=== PATIENT | male | born 1965 | race Caucasian/White ===

== ENCOUNTER 2018-07-22 07:11 | Inpatient (IN) | payer OTHER ==
[~2018-07-22] VITALS: Ht 180.3 cm; Wt 128.4 kg
[~2018-07-22 07:11] MED LIST: ACET325C PO; MELO-107 PO; METO25 PO
[2018-07-22] MEDS ORDERED: RINGERS SOLUTION,LACTATED 1,000 ML IV ONE ×2 (07:22→07:30)
[2018-07-22] MEDS ORDERED: CeFAZolin 2 GM/DEXTROSE 50 ML IV ONE ×2 (07:23→07:30)
[2018-07-22] MEDS ORDERED: GELATIN SPONGE,ABSORBABLE 100 MM TP ONE (08:49)
[2018-07-22] MEDS ORDERED: BACITRACIN 50,000 UNITS/VIAL ONE (08:49)
[2018-07-22] MEDS ORDERED: THROMBIN, BOVINE 20000 UNITS/VIAL POWDER TP ONE (08:49)
[2018-07-22] MEDS ORDERED: SODIUM CHLORIDE 0.9% 250 ML IV ONE ×2 (08:50→17:28)
[2018-07-22] MEDS ORDERED: SODIUM CHLORIDE 0.9% 10 ML ONE (08:50)
[2018-07-22] MEDS ORDERED: ACETAMINOPHEN 1000 MG/ISO-OSM 100 ML IV ONE ×2 (10:45→11:55)
[2018-07-22] MEDS ORDERED: NALOXONE HCL 0.4 MG/ML VIAL IVP PRN ×2 (10:45→11:30)
[2018-07-22] MEDS ORDERED: HYDROmorphone 2 MG/ML SYRINGE IVP PRN (10:45)
[2018-07-22] MEDS ORDERED: FentaNYL CITRATE-PF 100 MCG/2 ML VIAL IVP PRN (10:45)
[2018-07-22] MEDS ORDERED: MIDAZOLAM HCL 2 MG/2 ML VIAL IVP PRN (10:45)
[2018-07-22] MEDS ORDERED: ONDANSETRON HCL 4 MG/2 ML VIAL IVP PRN ×2 (10:45→11:30)
[2018-07-22] MEDS ORDERED: ACETAMINOPHEN 325 MG TABLET PO PRN (11:30)
[2018-07-22] MEDS ORDERED: BENZOCAINE/MENTHOL LOZENGE PO PRN (11:30)
[2018-07-22] MEDS ORDERED: OxyCODONE HCL/ACETAMINOPHEN 5-325 MG TABLET PO PRN (11:30)
[2018-07-22] MEDS ORDERED: MAG HYDROX/AL HYDROX/SIMETH 30 ML SUSP UDCUP PO PRN (11:30)
[2018-07-22] MEDS ORDERED: MEPERIDINE-PF 25 MG/ML VIAL IM STA (11:36)
[2018-07-22] MEDS: HYDROmorphone 2 MG/ML SYRINGE IVP PRN ×4 (11:52→23:26)
[2018-07-22 11:54] LABS: GLUCOMETER DEV NAME(LOC) PACU 2; GLUCOSE,POINT OF CARE 196 MG/DL (70-110)
[2018-07-22] MEDS ORDERED: RINGERS SOLUTION,LACTATED 500 ML IV ONE (12:07)
[2018-07-22 13:18] VITALS: BP 149/75
[2018-07-22] MEDS ORDERED: PNEUMOCOCCAL VACCINE POLYVALENT 0.5 ML VIAL [PPSV23] IM ONE (14:15)
[2018-07-22 15:29] VITALS: BP 141/95
[2018-07-22] MEDS: CYCLOBENZAPRINE HCL 10 MG TABLET PO SCH ×2 (16:00→20:55)
[2018-07-22] MEDS: OxyCODONE HCL/ACETAMINOPHEN 5-325 MG TABLET PO PRN (16:58)
[2018-07-22] MEDS ORDERED: CeFAZolin SODIUM 1 GM in DEXTROSE 5%-WATER 10 ML IV SCH (17:00)
[2018-07-22] MEDS: CeFAZolin 1 GM/DEXTROSE 50 ML IV SCH (17:44)
[2018-07-22] MEDS: NICOTINE 21 MG/24 HOUR PATCH TD SCH (18:18)
[2018-07-22 19:41] VITALS: BP 149/86
[2018-07-22] MEDS: OXYGEN THERAPY IH SCH (20:00)
[2018-07-22] MEDS: DOCUSATE SODIUM 100 MG CAPSULE PO SCH (20:55)
[2018-07-23 00:15] VITALS: BP 149/96
[2018-07-23] MEDS: CeFAZolin 1 GM/DEXTROSE 50 ML IV SCH (01:10)
[2018-07-23] MEDS: OxyCODONE HCL/ACETAMINOPHEN 5-325 MG TABLET PO PRN ×3 (01:52→14:14)
[2018-07-23 04:20] VITALS: BP 152/82
[2018-07-23] MEDS ORDERED: SUCCINYLCHOLINE CHLORIDE 20 MG/ML 10 ML VIAL IVP ONE (05:48)
[2018-07-23] MEDS ORDERED: FentaNYL CITRATE-PF 250 MCG/5 ML VIAL IVP ONE (05:48)
[2018-07-23] MEDS ORDERED: FentaNYL CITRATE-PF 100 MCG/2 ML VIAL IVP ONE (05:48)
[2018-07-23] MEDS ORDERED: MIDAZOLAM HCL 2 MG/2 ML VIAL IVP ONE (05:48)
[2018-07-23] MEDS ORDERED: NEOSTIGMINE METHYLSULFATE 1 MG/ML 10 ML VIAL IVP ONE (05:48)
[2018-07-23] MEDS ORDERED: ROCURONIUM BROMIDE 10 MG/ML 5 ML VIAL IVP ONE (05:48)
[2018-07-23] MEDS ORDERED: PROPOFOL 1% 20 ML VIAL IVP ONE (05:48)
[2018-07-23] MEDS ORDERED: LIDOCAINE/PF 2% 5 ML VIAL IM ONE (05:48)
[2018-07-23] MEDS ORDERED: VECURONIUM BROMIDE 10 MG/VIAL IVP ONE (05:48)
[2018-07-23] MEDS ORDERED: GLYCOPYRROLATE 0.2 MG/ML VIAL IM ONE (05:48)
[2018-07-23] MEDS: NICOTINE 21 MG/24 HOUR PATCH TD SCH (08:36)
[2018-07-23] MEDS: CYCLOBENZAPRINE HCL 10 MG TABLET PO SCH (08:37)
[2018-07-23] MEDS: OXYGEN THERAPY IH SCH (08:37)
[2018-07-23] MEDS: DOCUSATE SODIUM 100 MG CAPSULE PO SCH (08:38)
[2018-07-23 08:43] LABS: BASOPHILS % (AUTO) 0.5 % (0.0-2.0); EOSINOPHILS % (AUTO) 0.5 % (1.0-6.0); HEMATOCRIT 44.3 % (41-53); HEMOGLOBIN 14.8 g/dL (13.5-17.5); LYMPHOCYTES # (AUTO) 2.1 K/uL (1.0-4.8); LYMPHOCYTES % (AUTO) 13.7 % (22.0-44.0); MEAN CORPUSCULAR HEMOGLOBIN 29.9 pg (26.0-34.0); MEAN CORPUSCULAR HGB CONC 33.4 G/dL (31.0-37.0); MEAN CORPUSCULAR VOLUME 90 fL (80-100); MONOCYTES # (AUTO) 1.7 K/uL (0.1-1.0); MONOCYTES % (AUTO) 11.3 % (2.0-9.0); NEUTROPHILS # (AUTO) 11.4 K/uL (1.8-7.7); PLATELET COUNT (AUTO) 250 K/uL (150-450); RED BLOOD CELL COUNT(AUTO) 4.96 MIL/uL (4.50-5.90); RED CELL DISTRIBUTION WIDTH 13.5 % (11.5-14.5)
[2018-07-23 08:46] VITALS: BP 143/82
[2018-07-23] MEDS ORDERED: METOPROLOL TARTRATE 25 MG TABLET PO SCH (09:00)
[2018-07-23 09:08] LABS: ANION GAP 9 mmol/L (8-16); CALCIUM, TOTAL 8.7 mg/dL (8.8-10.5); CARBON DIOXIDE 28 mmol/L (22-29); CHLORIDE 100 mmol/L (98-107); CREATININE 0.95 mg/dL (0.60-1.30); GLOMERULAR FILTR. RATE CALC > 60 mL/min (>60); GLUCOSE,RANDOM 206 mg/dL (70-110); POTASSIUM 4.3 mmol/L (3.5-5.1); SODIUM SERUM 137 mmol/L (136-145); UREA NITROGEN, BLOOD 11 mg/dL (7-18)
[2018-07-23 11:08] VITALS: BP 133/90
[2018-07-23 14:08] LABS: BASOPHILS % (AUTO) 0.5 % (0.0-2.0); EOSINOPHILS % (AUTO) 1.5 % (1.0-6.0); HEMOGLOBIN 14.1 g/dL (13.5-17.5); LYMPHOCYTES # (AUTO) 2.7 K/uL (1.0-4.8); LYMPHOCYTES % (AUTO) 21.9 % (22.0-44.0); MEAN CORPUSCULAR HEMOGLOBIN 30.1 pg (26.0-34.0); MEAN CORPUSCULAR HGB CONC 33.5 G/dL (31.0-37.0); MEAN CORPUSCULAR VOLUME 90 fL (80-100); MONOCYTES # (AUTO) 1.8 K/uL (0.1-1.0); MONOCYTES % (AUTO) 14.8 % (2.0-9.0); NEUTROPHILS # (AUTO) 7.5 K/uL (1.8-7.7); NEUTROPHILS % (AUTO) 61.3 % (40.0-70.0); PLATELET COUNT (AUTO) 239 K/uL (150-450); RED BLOOD CELL COUNT(AUTO) 4.68 MIL/uL (4.50-5.90); RED CELL DISTRIBUTION WIDTH 13.6 % (11.5-14.5)
[2018-07-23] MEDS ORDERED: PERCT10 PO (14:22)
[2018-07-23] MEDS ORDERED: CYCL10 PO (14:22)
[2018-07-23] MEDS ORDERED: CEPH500 PO (14:23)
== END 2018-07-23 16:45 | disposition home or self-care (01) | DRG 473 ==
LOC: 4E 07:11 → 5S 12:20 → 5N 21:30
PROVIDERS: ADMIT Neurological Surgery; ATTEND Neurological Surgery
PROC: 0RG20A0 Fusion of 2 or more Cervical Vertebral Joints with Interbody Fusion Device, Anterior Approach, Anterior Column, Open Approach (ICD-10-PCS; 2018-07-22)
PROC: 0RB30ZZ Excision of Cervical Vertebral Disc, Open Approach (ICD-10-PCS; principal; 2018-07-22 09:00)
DX: M50.222 Other cervical disc displacement at C5-C6 level (principal); F41.9 Anxiety disorder, unspecified; I10 Essential (primary) hypertension; K21.9 Gastro-esophageal reflux disease without esophagitis; M19.90 Unspecified osteoarthritis, unspecified site; M50.223 Other cervical disc displacement at C6-C7 level; Z88.5 Allergy status to narcotic agent
CPT/HCPCS: 86850; 86900; 86901; 87081; 93005; 97116; 97162; 97165; 97530; 97535; C1713; G0238; G0378; J0131; J0330; J0690; J1170; J2250; J2405; J2704; J3010; J3490; J7050; J7060; J7120